=== PATIENT | female | born 1935 | race African-American/Black ===

== ENCOUNTER 2017-12-28 07:46 | Day surgery (SDC) | payer MEDICARE ==
[~2017-12-28] VITALS: Ht 170.2 cm; Wt 86.2 kg
[~2017-12-28 07:46] MED LIST: ASPI-1159 MT; CARV3.1242 MT; GABA-290 MT; METF-815 MT; VIT1TABL86 MT
[2017-12-28 09:46] LABS: BASOPHILS % 1.1 % (0.0-2.0); EOSINOPHILS % 4.2 % (0.0-5.0); HEMOGLOBIN. 14.1 g/dL (12.0-16.0); LYMPHOCYTES % 37.6 % (20.0-50.0); MEAN CORPUSCULAR HEMOGLOBIN 30.3 pg (28.0-32.0); MEAN PLATELET VOLUME 8.5 fl (7.4-10.4); MONOCYTES % 11.5 % (2.0-8.0); NEUTROPHILS % 45.6 % (40.0-76.0); PLATELET 250 x1000/uL (130-400); RED BLOOD CELL COUNT 4.66 mill/uL (4.2-5.4); RED CELL DISTRIBUTION WIDTH 13.7 % (11.6-14.6)
[2017-12-28 09:56] LABS: PARTIAL THROMBOPLASTIN TIME 26.7 sec (23.4-31.0)
[2017-12-28 10:02] LABS: CHLORIDE 107 mEq/L (98-107)
[2017-12-28] MEDS ORDERED: CHOL200074 MT (11:13)
[2017-12-28] MEDS ORDERED: UMEC1DIS IH (11:13)
[2017-12-28] MEDS ORDERED: NIAC1CAP MT (11:13)
[2017-12-28] MEDS ORDERED: PANT40TA4 MT (11:13)
[2017-12-28] MEDS ORDERED: AMLO10TA80 MT (11:13)
[2017-12-28] MEDS ORDERED: CARB-121 PO (11:13)
[2017-12-28] MEDS ORDERED: METO-293 PO (11:13)
[2017-12-28] MEDS ORDERED: ROSU20TA29 MT (11:13)
[2017-12-28] MEDS ORDERED: LEVO100T9 MT (11:13)
[2017-12-28] MEDS ORDERED: IOHEXOL-300 100 ML BOTTLE ONE (11:29)
[2017-12-28] MEDS ORDERED: LIDOCAINE HCL 1% 20ML VIAL (Pyxis) INJ ONE (11:29)
[2017-12-28] MEDS ORDERED: MIDAZOLAM HCL 2 MG/2 ML VIAL ONE (11:30)
[2017-12-28] MEDS ORDERED: FENTANYL CITRATE/PF 50MCG/ML 2ML VIAL ONE (11:30)
[2017-12-28] MEDS ORDERED: ONDANSETRON HCL 4MG/2ML INJ IV PRN (12:30)
[2017-12-28] MEDS ORDERED: MORPHINE SULFATE 2 MG/ML CPJ (NOT FOR IM USE) IV PRN (12:30)
[2017-12-28] MEDS ORDERED: ACETAMINOPHEN 325MG TABLET PO PRN (12:30)
[2017-12-28] MEDS ORDERED: NITROGLYCERIN 50MCG/ML 10ML VIAL (CATH LAB) IV ONE (15:12)
[2017-12-28] MEDS ORDERED: NICARDIPINE 100MCG/ML 10ML VIAL (CATH LAB) IV ONE (15:12)
[2017-12-28] MEDS ORDERED: HEPARIN 1,000 UNITS in 0.9% NACL (2 UNITS/ML) 500ML PREMIX IV ONE (16:06)
== END 2017-12-28 15:00 | disposition home or self-care (01) ==
LOC: CCL 07:46
PROVIDERS: ATTEND Internal Medicine Cardiovascular Disease
DX: I50.33 Acute on chronic diastolic (congestive) heart failure (principal); M94.0 Chondrocostal junction syndrome [Tietze]; J44.1 Chronic obstructive pulmonary disease with (acute) exacerbation; K21.9 Gastro-esophageal reflux disease without esophagitis; E11.9 Type 2 diabetes mellitus without complications; I11.0 Hypertensive heart disease with heart failure; Z87.891 Personal history of nicotine dependence; Z79.899 Other long term (current) drug therapy; Z79.82 Long term (current) use of aspirin
CPT/HCPCS: 36415; 80048; 85025; 85610; 85730; 93005; 93458; C1887; J1644; J2250; J3010; J3490; Q9967; C1769; C1893